=== PATIENT | male | born 1950 | race Caucasian/White ===

== ENCOUNTER 2022-07-24 05:15 | Inpatient (IN) | payer MEDICARE ==
[~2022-07-24] VITALS: Ht 180.3 cm; Wt 84.0 kg
[2022-07-24] MEDS ORDERED: OMEPRAZOLE20 MG PO (05:33)
[2022-07-24 06:04] LABS: HEMATOCRIT 29.3 % (39.0-50.0); HEMOGLOBIN 9.6 g/dl (14.0-18.0); IMMATURE GRANULOCYTES 1.1 % (0.0-5.0); MEAN CELL VOLUME 88.8 fL CALC (80.0-100.0); MEAN CORPUSCULAR HGB 29.1 pG CALC (26.0-32.0); MEAN CORPUSCULAR HGB CONC 32.8 g/dL CAL (32.0-36.0); NEUT# 7.35 thou/uL (1.82-7.42); RED BLOOD COUNT 3.3 mill/uL (4.70-6.10); RED CELL DISTRI WIDTH 14.3 % (11.5-15.5)
[2022-07-24 06:12] LABS: ACT PARTIAL THROMBO TIME 26.4 SECONDS (20.0-32.5); PROTHROMBIN TIME 10.1 SECONDS (9.0-12.5)
[2022-07-24 06:13] LABS: ALBUMIN 3.7 g/dL (3.2-5.0); ALKALINE PHOSPHATASE 98 u/l (38-126); ANION GAP 17 (6-22 (CALC)); BILIRUBIN, TOTAL 0.4 mg/dL (0.0-1.4); BUN 68 mg/dL (8-23); CARBON DIOXIDE 18 mmol/l (22-30); CHLORIDE 111 mmol/l (95-108); LIPASE 204 u/l (23-300); POTASSIUM 4.9 mmol/l (3.5-5.1); SGOT/AST 26 u/l (19-48); SODIUM 141 mmol/l (137-146); TOTAL PROTEIN 6.5 g/dL (6.3-8.2)
[2022-07-24 06:17] LABS: BUN/CREATININE RATIO 11 (12-20 (CALC)); GFR FOR AFR.AMER. 11 ML/MIN (>=60 (CALC)); GFR OTHER RACES 9 ML/MIN (>=60 (CALC))
[2022-07-24 06:18] LABS: CREATININE 6.1 mg/dL (0.7-1.3)
[2022-07-24 06:23] LABS: MYOGLOBIN 40 ng/mL (0 - 121)
[2022-07-24 06:45] LABS: TSH, 3RD GENERATION 2.19 uIU/mL (0.47 - 4.68)
[2022-07-24 07:45] LABS: URINE BILIRUBIN - DIPSTICK NEGATIVE (NEGATIVE); URINE BLOOD DIPSTICK NEGATIVE (NEGATIVE); URINE COLOR YELLOW; URINE GLUCOSE - DIPSTICK NEGATIVE (NEGATIVE); URINE KETONE NEGATIVE (NEGATIVE); URINE LEUK ESTERASE NEGATIVE (NEGATIVE); URINE PH 5.5 (4.5-8.0); URINE PROTEIN - DIPSTICK NEGATIVE (NEG-TRACE); URINE UROBILINOGEN - DIPSTICK 0.2 E.U./dL (0.2)
[2022-07-24 07:46] LABS: URINE NITRITE - DIPSTICK NEGATIVE (Negative)
[2022-07-24 10:29] LABS: ALBUMIN 3.2 g/dL (3.2-5.0); POTASSIUM 4.2 mmol/l (3.5-5.1)
[2022-07-24 10:31] LABS: CREATININE 5.2 mg/dL (0.7-1.3)
--- NOTE | 2022-07-24 11:28 | NUR ---
71 year old male receivd ib med surge today for urinary retention . Pt states that he was not able to to urinate for a week now. patient is alert and oriented, catheter de oliveira was inserted in the ED draining reddish color urine in bag, bilateral lower xtremities edema ,leftb greater estella right .
[2022-07-24 12:03] LABS: HEMATOCRIT 26.7 % (39.0-50.0); HEMOGLOBIN 8.7 g/dl (14.0-18.0)
--- NOTE | 2022-07-24 12:18 | NUR ---
bladder scan performed, 73 ml of urine obtained bladder irration also performed , small blood clots removed ,
[2022-07-24 13:23] VITALS: BP 139/70
[2022-07-24 16:00] VITALS: BP 130/64
--- NOTE | 2022-07-24 16:48 | NUR ---
called priyanka spoke to dane was given confirmation number [id number] to place air mattress on this pt.
--- NOTE | 2022-07-24 17:31 | NUR ---
AT 1518 HEPARIN DRIP STARTED PER MD : BOLUS 5000 ONUTS IV ,DRIP STARTED AT 1000 UNIT/H (20 ML/H) FOR DEEP VEIN THROMBOSIS.
[2022-07-24 18:00] LABS: HEMATOCRIT 27.9 % (39.0-50.0); HEMOGLOBIN 9.1 g/dl (14.0-18.0)
[2022-07-24 18:53] VITALS: BP 132/66
--- NOTE | 2022-07-24 19:15 | NUR ---
Report received from AM RN. Pt received in bed, awake, alert. No apparent distress. Heparin drip in progress at 1000 Units/hr. Pettit insitu with bloody urine. Will monitor amount of hematuria and serial labs.
--- NOTE | 2022-07-24 21:50 | NUR ---
PTT is therapeutic at 53.9. No rate change necessary. Same verified with nursing dairy processing supervisor. Next PTT scheduled for 035. Pettit draining well. Urine remains blood tinged. Will monitor.
[2022-07-24 23:50] VITALS: BP 112/43
[2022-07-25 00:26] LABS: HEMATOCRIT 25.7 % (39.0-50.0); HEMOGLOBIN 8.5 g/dl (14.0-18.0)
--- NOTE | 2022-07-25 02:43 | NUR ---
Pt appears to be sleeping on rounds. No noted complaints. Heparin drip infusing as per orders.Pettit still with bloody urine. Will monitor.
[2022-07-25 03:56] LABS: HEMATOCRIT 25.1 % (39.0-50.0); HEMOGLOBIN 8.2 g/dl (14.0-18.0); MEAN CELL VOLUME 89.6 fL CALC (80.0-100.0); MEAN CORPUSCULAR HGB 29.3 pG CALC (26.0-32.0); MEAN CORPUSCULAR HGB CONC 32.7 g/dL CAL (32.0-36.0); NEUT# 5.78 thou/uL (1.82-7.42); RED BLOOD COUNT 2.8 mill/uL (4.70-6.10); RED CELL DISTRI WIDTH 14.3 % (11.5-15.5)
[2022-07-25 04:15] VITALS: BP 116/60
[2022-07-25 04:15] LABS: POTASSIUM 4.1 mmol/l (3.5-5.1)
[2022-07-25 04:39] LABS: CREATININE 1.6 mg/dL (0.7-1.3)
--- NOTE | 2022-07-25 04:57 | NUR ---
PTT done at 0334 68.5. Same therapeutic, no changes made in rate. Will obtain another PTT in 6 hrs per IMAGE PROCESSING ENGINEER's note.
[2022-07-25 06:06] LABS: HEMATOCRIT 25.1 % (39.0-50.0); HEMOGLOBIN 8.1 g/dl (14.0-18.0)
[2022-07-25 06:26] VITALS: BP 123/60
[2022-07-25 11:37] VITALS: BP 145/70
[2022-07-25 12:07] LABS: HEMATOCRIT 28.1 % (39.0-50.0); HEMOGLOBIN 9.1 g/dl (14.0-18.0)
[2022-07-25 16:13] VITALS: BP 135/61
[2022-07-25 18:46] VITALS: BP 133/58
--- NOTE | 2022-07-25 22:49 | NUR ---
PATIENT WAS TOLD EARLIER THAT HE WAS BEING DISCHARGED. THE D/C IS INCOMPLETE. PATIENT INFORMED HE WOULD BE DISCHARGED TOMORROW.
[2022-07-26 00:11] VITALS: BP 104/51
--- NOTE | 2022-07-26 00:26 | NUR ---
[facility] arrived to transfer patient to [facility]. Patient stable with [address]
--- NOTE | 2022-07-28 18:38 | NUR ---
CALLED [employer] FOR TUBE BACKER OF AIR MATTRESS SPOKE TO GABRIEL WAS GIVEN CONFIRMATION NUMBER [phone].
== END 2022-07-26 00:35 | disposition short-term general hospital (02) | DRG 699 ==
LOC: ED 05:15 → ED-I 06:34 → ED 08:14 → MS2 08:15
PROVIDERS: Family Medicine; Nurse Practitioner; ADMIT Internal Medicine; ATTEND Internal Medicine
PROC: 0T9B70Z Drainage of Bladder with Drainage Device, Via Natural or Artificial Opening (ICD-10-PCS; principal; 2022-07-24)
DX: N32.0 Bladder-neck obstruction (principal); D62 Acute posthemorrhagic anemia; N13.30 Unspecified hydronephrosis; N17.9 Acute kidney failure, unspecified; I82.812 Embolism and thrombosis of superficial veins of left lower extremity; K64.9 Unspecified hemorrhoids; E86.0 Dehydration; R31.0 Gross hematuria; K59.09 Other constipation; F17.210 Nicotine dependence, cigarettes, uncomplicated; Z20.822 Contact with and (suspected) exposure to COVID-19
CPT/HCPCS: J1644; J1650; J1756; J3420; S0164